=== PATIENT | male | born 1955 | race Caucasian/White ===

== ENCOUNTER 2017-11-14 16:05 | Inpatient (IN) | payer OTHER, SELFPAY ==
--- NOTE | 2017-11-14 16:05 | DT_ITS ---
This patient was seen during an EMR downtime November 12, 2017 - November 19, 2017. This patient may have a combination of paper and electronic documentation or all paper documentation. All documentation is viewable within the e-chart portion of [employer] for each patient visit.
[2017-11-17 13:32] LABS: ALB/GLOB Ratio 0.8 RATIO (0.9-2.4); AST(SGOT) 14 U/L (15-37); Alanine Aminotransfer ALT/SGPT 22 U/L (16-61); Albumin, Serum 3.3 g/dL (3.2-5.0); Alkaline Phosphatase 111 U/L (45-117); Anion Gap 9 (5-15); BUN 16 mg/dL (7-18); BUN/Creat Ratio 18.6 RATIO (10-20); Calcium,Total 8.9 mg/dL (8.5-10.1); Chloride 108 mmol/L (98-107); Creatinine, Serum 0.86 mg/dL (0.70-1.30); EST Glomerular Filtration Rate 96 mL/min (>60); Est Glom Filt Rate - Afr Amer 116 mL/min (>60); Globulin 4.4 g/dL (2.2-4.2); Glucose 92 mg/dL (74-106); Potassium 4.1 mmol/L (3.5-5.1); Protein, Total 7.7 g/dL (6.4-8.2); Sodium Level 142 mmol/L (136-145)
[2017-11-17 15:22] LABS: Prothrombin Time (Protime)PT. 13.4 SECONDS (11.7-14.9)
[2017-11-19] MEDS: Heparin Injection (Vial) 5,000 UNIT/ML VIAL 5000 UNIT SC ×3 (06:00→22:03)
[2017-11-19] MEDS: Lisinopril 10 MG Tablet PO (07:56)
[2017-11-19] MEDS: Docusate Sodium 100 MG Capsule PO ×2 (07:56→22:04)
[2017-11-19] MEDS: Carvedilol 12.5 MG Tablet PO ×2 (07:56→22:04)
[2017-11-19] MEDS: Aspirin 81 MG TAB.CHEW PO (07:56)
--- NOTE | 2017-11-19 11:00 | PN.NEURO_ITS ---
Subjective: Staffed in Team meeting. Family at bedside. Questions answered. With physical therapy, he is contact guard for transfers, to get in and out of bed. He is able to walk at 300 feet with out an assistive device, he does need verbal cues to remind him to look to his left in order to clear his environment on his left side. His strength has improved since admission. In the coming week will work on improving his gait, and his environmental awareness. With Occupational therapy, he is standby to set up assist for personal care. With Speech therapy, he has mild processing issues and sequencing difficulty. Will continue to work on his attention to the left in his environment. Nursing, no new issues. When discharged home will have family with him at all times. Will re-team on Sunday. - Physical Exam General: Alert, Oriented x3, Cooperative HEENT: Atraumatic, PERRLA, EOMI, Normocephalic Neck: Supple, No JVD, Negative Carotid Bruits Lungs: Clear to auscultation, Normal air movement Cardiovascular: Regular rate, No murmurs Abdomen: Bowel Sounds Present, Soft, Non Tender Extremities: No edema, Capillary Refill Less than 3 Seconds Skin: No rashes, No breakdown Musculoskeletal: No Tenderness to Palpation of Joints or Extremities Neurological: Cranial nerves II-XII grossly intact Psych/Mental Status: Normal Affect, Appropriate, Alert and oriented to time, place, person, mood and affect Active Medications Acetaminophen (Tylenol) 650 mg PO Q6H PRN PRN PRN Reason: PAIN Amlodipine Besylate (Norvasc) 10 mg PO QHS [facility] Aspirin (Aspirin, Baby) 81 mg PO DAILY@0800 [facility] Atorvastatin Calcium (Lipitor) 40 mg PO QHS [facility] Bisacodyl (Dulcolax) 10 mg RECTAL .PRN X 1 PRN PRN Reason: Constipation Carvedilol (Coreg) 12.5 mg PO BID [facility] Docusate Sodium (Colace) 100 mg PO BID [facility] Heparin Sodium (Porcine) (Heparin Na) 5,000 unit SC Q8 [facility] Lisinopril (Zestril) 10 mg PO DAILY [facility] Magnesium Hydroxide (Milk Of Magnesia) 30 ml PO .PRN X 1 PRN PRN Reason: Constipation Melatonin (Melatonin) 3 mg PO QHS [facility] Senna/Docusate Sodium (Senokot-S, Linsey-Colace) 2 tablet PO DAILY [facility] Assessment/Plan Debility status post Right thalamic hemorrhage 2/2 Coumadin for AFib. Goal of rehab is spiritism of prior level of functional independence. Plan: - Physical therapy for gait and balance - Occupational Therapy for ADLs - Speech therapy - As needed analgesics - Bowel protocol - Stroke prevention on ASA, Statin and Lovenox, will transition to Eliquis 02/13 , then will d/c the ASA, and Lovenox - DVT prophylaxis: SCDs, HEPARIN - Hypertension: Stable with good control, continue, home medication, Keep BP < 130/80 mmHg - Hx AFib - Coumadin on hold, may need to be evaluated for Watchmen device, will defer to his global upstream marketing manager at [facility], will continue the Heparin for now - Hx HLD - continue home dose of Statin - Follow up appointment with Neurosurgery on 12/10/17 -Follow up appointment with Computer Lab Aide on 12/14/17
--- NOTE | 2017-11-19 14:13 | CASEMGMT ---
Team meeting held. Patient present as well as patient family. No discharge date set at this time. Patient plans to continue with further care and treatment on the Inpatient Rehab Unit at this time. Patient plans to discharge home with family will be providing 24hr care for patient within the home. Support given. Will continue to follow. Alba REARDON, COAL YARD SUPERVISOR
[2017-11-19 18:37] LABS: Hematocrit 39.5 % (40-54); Hemoglobin 12.5 g/dl (13.0-16.5); Mean Corp Hgb Conc 31.6 g/gl (32-36); Mean Corpuscular Hgb 29.3 pg (27.0-32.0); Mean Corpuscular Volume 92.5 fL (80-94); RBC Distribution Width CV 15.4 % (11.6-14.6); RBC Distribution Width SD 49.7 fl (35.1-43.9); Red Blood Count 4.27 M/mm3 (4.6-6.2); White Blood Count 6.1 K/mm3 (4.4-11.0)
[2017-11-19 18:38] LABS: Mean Platelet Vol. 10.1 fl (6.2-12.0); Platelet Count 346 K/mm3 (150-450); Scan Indicated on CBC? Y/N NO
[2017-11-19 22:00] VITALS: BP 117/69; PULSE 73; RESP 18; TEMP 36.3; O2SAT 98
[2017-11-19] MEDS: amLODIPine 10 MG Tablet PO (22:02)
[2017-11-19] MEDS: Atorvastatin Calcium 40 MG Tablet PO (22:03)
[2017-11-19] MEDS: MELATONIN 3 MG TABLET PO (22:03)
[2017-11-20] MEDS: Heparin Injection (Vial) 5,000 UNIT/ML VIAL 5000 UNIT SC ×3 (05:47→21:10)
[2017-11-20 10:00] VITALS: BP 121/64; PULSE 67; RESP 16; TEMP 36.5; O2SAT 96
[2017-11-20] MEDS: Docusate Sodium 100 MG Capsule PO ×2 (10:02→21:11)
[2017-11-20] MEDS: Aspirin 81 MG TAB.CHEW PO (10:02)
[2017-11-20] MEDS: Carvedilol 12.5 MG Tablet PO ×2 (10:02→21:10)
[2017-11-20] MEDS: Lisinopril 10 MG Tablet PO (10:02)
--- NOTE | 2017-11-20 13:18 | PCM.PN.NEU ---
Subjective: Patient seen and examined. No acute events overnight. Tolerating therapy. Continues to have blurred vision, with left homonymous hemiopia. No issues with GI/. - Physical Exam General: Alert, Oriented x3, Cooperative HEENT: Atraumatic, PERRLA, EOMI, Normocephalic Neck: Supple, No JVD, Negative Carotid Bruits Lungs: Clear to auscultation, Normal air movement Cardiovascular: Regular rate, No murmurs Abdomen: Bowel Sounds Present, Soft, Non Tender Extremities: No edema, Capillary Refill Less than 3 Seconds Skin: No rashes, No breakdown Musculoskeletal: No Tenderness to Palpation of Joints or Extremities Neurological: Cranial nerves II-XII grossly intact, Neuro grossly intact, - - Left homonymous hemianopsia Psych/Mental Status: Normal Affect, Appropriate, Alert and oriented to time, place, person, mood and affect Vital Signs Temp Pulse Resp BP Pulse Ox 97.7 F L 67 16 121/64 H 96 11/20/17 10:00 11/20/17 10:11/20/17 10:00 11/20/17 10:11/20/17 10:00 Oxygen Delivery Method Room Air Weight: 75.3 kg Intake and Output for Last 24 Hours 11/18/17 11/19/17 11/20/17 23:59 23:59 23:59 Intake Total 120 / 120 Balance 120 / 120 Laboratory Tests Past 24 Hrs 11/16/17 Unknown WBC 6.1 RBC 4.27 L Hgb 12.5 L Hct 39.5 L MCV 92.5 MCH 29.3 MCHC 31.6 L RDW 15.4 H RDW Differential 49.7 H Plt Count 346 MPV 10.1 Active Medications Acetaminophen (Tylenol) 650 mg PO Q6H PRN PRN PRN Reason: PAIN Amlodipine Besylate (Norvasc) 10 mg PO QHS [facility] Last Admin: 11/20/17 12:57 Dose: Not Given Aspirin (Aspirin, Baby) 81 mg PO DAILY@0800 [facility] Last Admin: 11/20/17 12:56 Dose: Not Given Atorvastatin Calcium (Lipitor) 40 mg PO QHS [facility] Last Admin: 11/20/17 12:57 Dose: Not Given Bisacodyl (Dulcolax) 10 mg RECTAL .PRN X 1 PRN PRN Reason: Constipation Carvedilol (Coreg) 12.5 mg PO BID [facility] Last Admin: 11/20/17 12:57 Dose: Not Given Docusate Sodium (Colace) 100 mg PO BID [facility] Last Admin: 11/20/17 12:56 Dose: Not Given Heparin Sodium (Porcine) (Heparin Na) 5,000 unit SC Q8 [facility] Last Admin: 11/20/17 12:56 Dose: Not Given Lisinopril (Zestril) 10 mg PO DAILY [facility] Last Admin: 11/20/17 12:57 Dose: Not Given Magnesium Hydroxide (Milk Of Magnesia) 30 ml PO .PRN X 1 PRN PRN Reason: Constipation Melatonin (Melatonin) 3 mg PO QHS [facility] Last Admin: 11/20/17 12:57 Dose: Not Given Senna/Docusate Sodium (Senokot-S, Linsey-Colace) 2 tablet PO DAILY [facility] Last Admin: 11/20/17 12:57 Dose: Not Given Assessment/Plan Debility status post Right thalamic hemorrhage 2/2 Coumadin tx for AFib. Goal of rehab is uatsdin of prior level of functional independence. Plan: - Physical therapy for gait and balance - Occupational Therapy for ADLs - Speech therapy - As needed analgesics - Bowel protocol - Stroke prevention on ASA, Statin and Lovenox, will transition to Eliquis 02/13, then will d/c the ASA, and Lovenox - DVT prophylaxis: SCDs, HEPARIN - Hypertension: Stable with good control, continue, home medication, Keep BP < 130/80 mmHg - Hx AFib - Coumadin on hold, may need to be evaluated for Watchmen device, will defer to his hog feeder at [facility], will continue the Heparin for now - Hx HLD - continue home dose of Statin - Follow up appointment with Neurosurgery on 12/10/17 -Follow up appointment with Field Advisor on 12/14/17
--- NOTE | 2017-11-20 13:32 | PN.NEURO_ITS ---
Subjective: Patient seen and examined. No acute events overnight. Tolerating therapy. Continues to have blurred vision, with left homonymous hemiopia. No issues with GI/. - Physical Exam General: Alert, Oriented x3, Cooperative HEENT: Atraumatic, PERRLA, EOMI, Normocephalic Neck: Supple, No JVD, Negative Carotid Bruits Lungs: Clear to auscultation, Normal air movement Cardiovascular: Regular rate, No murmurs Abdomen: Bowel Sounds Present, Soft, Non Tender Extremities: No edema, Capillary Refill Less than 3 Seconds Skin: No rashes, No breakdown Musculoskeletal: No Tenderness to Palpation of Joints or Extremities Neurological: Cranial nerves II-XII grossly intact, Neuro grossly intact, - - Left homonymous hemianopsia Psych/Mental Status: Normal Affect, Appropriate, Alert and oriented to time, place, person, mood and affect Vital Signs Temp Pulse Resp BP Pulse Ox 97.7 F L 67 16 121/64 H 96 11/20/17 10:00 11/20/17 10:11/20/17 10:00 11/20/17 10:11/20/17 10:00 Oxygen Delivery Method Room Air Weight: 75.3 kg Intake and Output for Last 24 Hours 11/18/17 11/19/17 11/20/17 23:59 23:59 23:59 Intake Total 120 / 120 Balance 120 / 120 Laboratory Tests Past 24 Hrs 11/16/17 Unknown WBC 6.1 RBC 4.27 L Hgb 12.5 L Hct 39.5 L MCV 92.5 MCH 29.3 MCHC 31.6 L RDW 15.4 H RDW Differential 49.7 H Plt Count 346 MPV 10.1 Active Medications Acetaminophen (Tylenol) 650 mg PO Q6H PRN PRN PRN Reason: PAIN Amlodipine Besylate (Norvasc) 10 mg PO QHS [facility] Last Admin: 11/20/17 12:57 Dose: Not Given Aspirin (Aspirin, Baby) 81 mg PO DAILY@0800 [facility] Last Admin: 11/20/17 12:56 Dose: Not Given Atorvastatin Calcium (Lipitor) 40 mg PO QHS [facility] Last Admin: 11/20/17 12:57 Dose: Not Given Bisacodyl (Dulcolax) 10 mg RECTAL .PRN X 1 PRN PRN Reason: Constipation Carvedilol (Coreg) 12.5 mg PO BID [facility] Last Admin: 11/20/17 12:57 Dose: Not Given Docusate Sodium (Colace) 100 mg PO BID [facility] Last Admin: 11/20/17 12:56 Dose: Not Given Heparin Sodium (Porcine) (Heparin Na) 5,000 unit SC Q8 [facility] Last Admin: 11/20/17 12:56 Dose: Not Given Lisinopril (Zestril) 10 mg PO DAILY [facility] Last Admin: 11/20/17 12:57 Dose: Not Given Magnesium Hydroxide (Milk Of Magnesia) 30 ml PO .PRN X 1 PRN PRN Reason: Constipation Melatonin (Melatonin) 3 mg PO QHS [facility] Last Admin: 11/20/17 12:57 Dose: Not Given Senna/Docusate Sodium (Senokot-S, Linsey-Colace) 2 tablet PO DAILY [facility] Last Admin: 11/20/17 12:57 Dose: Not Given Assessment/Plan Debility status post Right thalamic hemorrhage 2/2 Coumadin tx for AFib. Goal of rehab is moravian of prior level of functional independence. Plan: - Physical therapy for gait and balance - Occupational Therapy for ADLs - Speech therapy - As needed analgesics - Bowel protocol - Stroke prevention on ASA, Statin and Lovenox, will transition to Eliquis 02/13 , then will d/c the ASA, and Lovenox - DVT prophylaxis: SCDs, HEPARIN - Hypertension: Stable with good control, continue, home medication, Keep BP < 130/80 mmHg - Hx AFib - Coumadin on hold, may need to be evaluated for Watchmen device, will defer to his development educator at [facility], will continue the Heparin for now - Hx HLD - continue home dose of Statin - Follow up appointment with Neurosurgery on 12/10/17 -Follow up appointment with Branch Manager Trainee on 12/14/17
[2017-11-20 17:45] VITALS: O2SAT 96
[2017-11-20 20:38] VITALS: BP 115/55; PULSE 69; RESP 16; TEMP 36.3; O2SAT 97
[2017-11-20] MEDS: amLODIPine 10 MG Tablet PO (21:09)
[2017-11-20] MEDS: MELATONIN 3 MG TABLET PO (21:09)
[2017-11-20] MEDS: Atorvastatin Calcium 40 MG Tablet PO (21:32)
[2017-11-21] MEDS: Heparin Injection (Vial) 5,000 UNIT/ML VIAL 5000 UNIT SC ×3 (05:50→21:17)
[2017-11-21 09:30] VITALS: BP 113/63; PULSE 76; RESP 16; TEMP 36.4; O2SAT 95
[2017-11-21] MEDS: Carvedilol 12.5 MG Tablet PO ×2 (10:06→21:16)
[2017-11-21] MEDS: Lisinopril 10 MG Tablet PO (10:06)
[2017-11-21] MEDS: Aspirin 81 MG TAB.CHEW PO (10:06)
[2017-11-21] MEDS: Docusate Sodium 100 MG Capsule PO ×2 (10:06→21:17)
--- NOTE | 2017-11-21 10:10 | PCM.PN.NEU ---
Subjective: Patient seen during Occupational therapy session. No new complaints. Denies any headaches, or double vision. Continue to have left homonymous hemiopia. Tolerating regular diet. No issues with GI/. - Physical Exam General: Alert, Oriented x3, Cooperative HEENT: Atraumatic, PERRLA, EOMI, Normocephalic Neck: Supple, No JVD, Negative Carotid Bruits Lungs: Clear to auscultation, Normal air movement Cardiovascular: Regular rate, No murmurs Abdomen: Bowel Sounds Present, Soft, Non Tender Extremities: No edema, Capillary Refill Less than 3 Seconds Skin: No rashes, No breakdown Musculoskeletal: No Tenderness to Palpation of Joints or Extremities Neurological: Cranial nerves II-XII grossly intact Psych/Mental Status: Normal Affect, Appropriate, Alert and oriented to time, place, person, mood and affect Vital Signs Temp Pulse Resp BP Pulse Ox 97.6 F L 76 16 113/63 95 11/21/17 09:30 11/21/17 09:30 11/21/17 09:30 11/21/17 09:30 11/21/17 09:30 Oxygen Delivery Method Room Air Weight: 75.9 kg Intake and Output for Last 24 Hours 11/19/17 11/20/17 11/21/17 23:59 23:59 23:59 Intake Total 120 / 120 440 / 440 260 / 260 Balance 120 / 120 440 / 440 260 / 260 Active Medications Acetaminophen (Tylenol) 650 mg PO Q6H PRN PRN PRN Reason: PAIN Amlodipine Besylate (Norvasc) 10 mg PO QHS [facility] Last Admin: 11/20/17 21:09 Dose: 10 mg Aspirin (Aspirin, Baby) 81 mg PO DAILY@0800 [facility] Last Admin: 11/21/17 10:06 Dose: 81 mg Atorvastatin Calcium (Lipitor) 40 mg PO QHS [facility] Last Admin: 11/20/17 21:32 Dose: 40 mg Bisacodyl (Dulcolax) 10 mg RECTAL .PRN X 1 PRN PRN Reason: Constipation Carvedilol (Coreg) 12.5 mg PO BID [facility] Last Admin: 11/21/17 10:06 Dose: 12.5 mg Docusate Sodium (Colace) 100 mg PO BID [facility] Last Admin: 11/21/17 10:06 Dose: 100 mg Heparin Sodium (Porcine) (Heparin Na) 5,000 unit SC Q8 [facility] Last Admin: 11/21/17 05:50 Dose: 5,000 u Lisinopril (Zestril) 10 mg PO DAILY [facility] Last Admin: 11/21/17 10:06 Dose: 10 mg Magnesium Hydroxide (Milk Of Magnesia) 30 ml PO .PRN X 1 PRN PRN Reason: Constipation Melatonin (Melatonin) 3 mg PO QHS [facility] Last Admin: 11/20/17 21:09 Dose: 3 mg Senna/Docusate Sodium (Senokot-S, Linsey-Colace) 2 tablet PO DAILY [facility] Last Admin: 11/20/17 14:14 Dose: Not Given Assessment/Plan Debility status post Right thalamic hemorrhage 2/2 Coumadin tx for AFib. Goal of rehab is mu-ism of prior level of functional independence. Plan: - Physical therapy for gait and balance - Occupational Therapy for ADLs - Speech therapy - As needed analgesics - Bowel protocol - Stroke prevention on ASA, Statin and Lovenox, will transition to [facility] 02/13, then will d/c the ASA, and Lovenox - DVT prophylaxis: SCDs, HEPARIN - Hypertension: Stable with good control, continue, home medication, Keep BP < 130/80 mmHg - Hx AFib - Coumadin on hold, may need to be evaluated for Watchmen device, will defer to his water resource engineering specialist at [facility], will continue the Heparin for now - Hx HLD - continue home dose of Statin - Follow up appointment with Neurosurgery on 12/10/17 - Follow up appointment with Rail Car Repairer on 12/14/17
--- NOTE | 2017-11-21 10:18 | PN.NEURO_ITS ---
Subjective: Patient seen during Occupational therapy session. No new complaints. Denies any headaches, or double vision. Continue to have left homonymous hemiopia. Tolerating regular diet. No issues with GI/. - Physical Exam General: Alert, Oriented x3, Cooperative HEENT: Atraumatic, PERRLA, EOMI, Normocephalic Neck: Supple, No JVD, Negative Carotid Bruits Lungs: Clear to auscultation, Normal air movement Cardiovascular: Regular rate, No murmurs Abdomen: Bowel Sounds Present, Soft, Non Tender Extremities: No edema, Capillary Refill Less than 3 Seconds Skin: No rashes, No breakdown Musculoskeletal: No Tenderness to Palpation of Joints or Extremities Neurological: Cranial nerves II-XII grossly intact Psych/Mental Status: Normal Affect, Appropriate, Alert and oriented to time, place, person, mood and affect Vital Signs Temp Pulse Resp BP Pulse Ox 97.6 F L 76 16 113/63 95 11/21/17 09:30 11/21/17 09:30 11/21/17 09:30 11/21/17 09:30 11/21/17 09:30 Oxygen Delivery Method Room Air Weight: 75.9 kg Intake and Output for Last 24 Hours 11/19/17 11/20/17 11/21/17 23:59 23:59 23:59 Intake Total 120 / 120 440 / 440 260 / 260 Balance 120 / 120 440 / 440 260 / 260 Active Medications Acetaminophen (Tylenol) 650 mg PO Q6H PRN PRN PRN Reason: PAIN Amlodipine Besylate (Norvasc) 10 mg PO QHS [facility] Last Admin: 11/20/17 21:09 Dose: 10 mg Aspirin (Aspirin, Baby) 81 mg PO DAILY@0800 [facility] Last Admin: 11/21/17 10:06 Dose: 81 mg Atorvastatin Calcium (Lipitor) 40 mg PO QHS [facility] Last Admin: 11/20/17 21:32 Dose: 40 mg Bisacodyl (Dulcolax) 10 mg RECTAL .PRN X 1 PRN PRN Reason: Constipation Carvedilol (Coreg) 12.5 mg PO BID [facility] Last Admin: 11/21/17 10:06 Dose: 12.5 mg Docusate Sodium (Colace) 100 mg PO BID [facility] Last Admin: 11/21/17 10:06 Dose: 100 mg Heparin Sodium (Porcine) (Heparin Na) 5,000 unit SC Q8 [facility] Last Admin: 11/21/17 05:50 Dose: 5,000 u Lisinopril (Zestril) 10 mg PO DAILY [facility] Last Admin: 11/21/17 10:06 Dose: 10 mg Magnesium Hydroxide (Milk Of Magnesia) 30 ml PO .PRN X 1 PRN PRN Reason: Constipation Melatonin (Melatonin) 3 mg PO QHS [facility] Last Admin: 11/20/17 21:09 Dose: 3 mg Senna/Docusate Sodium (Senokot-S, Linsey-Colace) 2 tablet PO DAILY [facility] Last Admin: 11/20/17 14:14 Dose: Not Given Assessment/Plan Debility status post Right thalamic hemorrhage 2/2 Coumadin tx for AFib. Goal of rehab is protestant of prior level of functional independence. Plan: - Physical therapy for gait and balance - Occupational Therapy for ADLs - Speech therapy - As needed analgesics - Bowel protocol - Stroke prevention on ASA, Statin and Lovenox, will transition to [facility] 02/13 , then will d/c the ASA, and Lovenox - DVT prophylaxis: SCDs, HEPARIN - Hypertension: Stable with good control, continue, home medication, Keep BP < 130/80 mmHg - Hx AFib - Coumadin on hold, may need to be evaluated for Watchmen device, will defer to his advanced manufacturing engineer at [facility], will continue the Heparin for now - Hx HLD - continue home dose of Statin - Follow up appointment with Neurosurgery on 12/10/17 - Follow up appointment with Dye Operator on 12/14/17
[2017-11-21 19:56] VITALS: BP 121/61; PULSE 74; RESP 16; TEMP 36.7; O2SAT 98
[2017-11-21] MEDS: MELATONIN 3 MG TABLET PO (21:16)
[2017-11-21] MEDS: Atorvastatin Calcium 40 MG Tablet PO (21:17)
[2017-11-21] MEDS: amLODIPine 10 MG Tablet PO (21:17)
[2017-11-22] MEDS: Heparin Injection (Vial) 5,000 UNIT/ML VIAL 5000 UNIT SC ×3 (05:42→20:13)
[2017-11-22 07:37] VITALS: BP 118/69; PULSE 67; RESP 18; TEMP 36.4; O2SAT 97
[2017-11-22] MEDS: Lisinopril 10 MG Tablet PO (08:00)
[2017-11-22] MEDS: Carvedilol 12.5 MG Tablet PO ×2 (08:01→20:13)
[2017-11-22] MEDS: Docusate Sodium 100 MG Capsule PO ×2 (08:01→20:13)
[2017-11-22] MEDS: Aspirin 81 MG TAB.CHEW PO (08:01)
--- NOTE | 2017-11-22 08:47 | PCM.PN.NEU ---
Subjective: Patient seen during Occupational therapy session. No acute events over night. Tolerating therapy and doing very well per the therapy staff. The patient and his family would like for him to be discharged home on Sunday if he is doing well and by all accounts he is doing very well. Will discharge him home with Outpatient Speech therapy and Occupational therapy. - Physical Exam General: Alert, Oriented x3, Cooperative HEENT: Atraumatic, PERRLA, EOMI, Normocephalic Neck: Supple, No JVD, Negative Carotid Bruits Lungs: Clear to auscultation, Normal air movement Cardiovascular: Regular rate, No murmurs Abdomen: Bowel Sounds Present, Soft, Non Tender Extremities: No edema, Capillary Refill Less than 3 Seconds Skin: No rashes, No breakdown Musculoskeletal: No Tenderness to Palpation of Joints or Extremities Neurological: Cranial nerves II-XII grossly intact Psych/Mental Status: Normal Affect, Appropriate, Alert and oriented to time, place, person, mood and affect Vital Signs Temp Pulse Resp BP Pulse Ox 97.5 F L 67 18 118/69 97 11/22/17 07:37 11/22/17 07:37 11/22/17 07:37 11/22/17 07:37 11/22/17 07:37 Oxygen Delivery Method Room Air Weight: 75.9 kg Intake and Output for Last 24 Hours 11/20/17 11/21/17 11/22/17 23:59 23:59 23:59 Intake Total 440 / 440 740 / 740 240 / 240 Balance 440 / 440 740 / 740 240 / 240 Active Medications Acetaminophen (Tylenol) 650 mg PO Q6H PRN PRN PRN Reason: PAIN Amlodipine Besylate (Norvasc) 10 mg PO QHS [facility] Last Admin: 11/21/17 21:17 Dose: 10 mg Aspirin (Aspirin, Baby) 81 mg PO DAILY@0800 [facility] Last Admin: 11/22/17 08:01 Dose: 81 mg Atorvastatin Calcium (Lipitor) 40 mg PO QHS [facility] Last Admin: 11/21/17 21:17 Dose: 40 mg Bisacodyl (Dulcolax) 10 mg RECTAL .PRN X 1 PRN PRN Reason: Constipation Carvedilol (Coreg) 12.5 mg PO BID [facility] Last Admin: 11/22/17 08:01 Dose: 12.5 mg Docusate Sodium (Colace) 100 mg PO BID [facility] Last Admin: 11/22/17 08:01 Dose: 100 mg Heparin Sodium (Porcine) (Heparin Na) 5,000 unit SC Q8 [facility] Last Admin: 11/22/17 05:42 Dose: 5,000 u Lisinopril (Zestril) 10 mg PO DAILY [facility] Last Admin: 11/22/17 08:00 Dose: 10 mg Magnesium Hydroxide (Milk Of Magnesia) 30 ml PO .PRN X 1 PRN PRN Reason: Constipation Melatonin (Melatonin) 3 mg PO QHS [facility] Last Admin: 11/21/17 21:16 Dose: 3 mg Assessment/Plan Debility status post Right thalamic hemorrhage 2/2 Coumadin tx for AFib. Goal of rehab is zoroastrianism of prior level of functional independence. Plan: - Physical therapy for gait and balance - Occupational Therapy for ADLs - Speech therapy - As needed analgesics - Bowel protocol - Stroke prevention on ASA, Statin and Lovenox, will transition to Eliquis 02/13, then will d/c the ASA, and Lovenox - DVT prophylaxis: SCDs, HEPARIN - Hypertension: Stable with good control, continue, home medication, Keep BP < 130/80 mmHg - Hx AFib - Coumadin on hold, may need to be evaluated for Watchmen device, will defer to his turner in at [facility], will continue the Heparin for now - Hx HLD - continue home dose of Statin - Follow up appointment with Neurosurgery on 12/10/17 - Follow up appointment with Flight Communications Operator on 12/14/17 - Discharge planned for Friday 11/24, with outpatient Occupational therapy and Speech therapy
--- NOTE | 2017-11-22 13:28 | CASEMGMT ---
Social Work Spoke with patient in room. Patient requesting for discharge date to set for 11/24/17, spoke with team, 11/24/17 is an agreeable discharge date at this time. Patient plans to discharge home with nephew and family to provide 24hr care, as is being recommended by staff. Speech and Occupational therapy are recommending for patient to have continued outpatient services at time of discharge. Patient is agreeable to recommendation and requesting for outpatient services to be set up through [facility]. Patient aware that an order will be faxed to [facility] and then [facility] will contact patient to set up appointment. Patient confirming that [facility] is to contact patient brotherEpi to set up appointment. Patient family plans to provide transportation home for patient at time of discharge. Patient reporting no further needs and is currently voicing no durable medical equipment needs. Patient brother Epi aware of discharge date and plan and is agreeable to all. Support given. Order for Occupational and Speech therapy faxed to [facility]. Proposed discharge date: 11/24/17 PLAN: Discharge home with family and outpatient therapy services. Alba REARDON, BURNT LIME DRAWER
--- NOTE | 2017-11-22 17:21 | PCM.PN.HOSP ---
Subjective: Patient was seen and examined. No new complaints. Been discharged on Sunday. Denies any chest pain dizziness or palpitations Vitals/I&O's: Vital Signs Temp Pulse Resp BP Pulse Ox 97.5 F L 67 18 118/69 97 11/22/17 07:37 11/22/17 07:37 11/22/17 07:37 11/22/17 07:37 11/22/17 07:37 Oxygen Delivery Method Room Air Weight: 75.9 kg Intake and Output for Last 24 Hours 11/20/17 11/21/17 11/22/17 23:59 23:59 23:59 Intake Total 440 / 440 740 / 740 600 / 600 Balance 440 / 440 740 / 740 600 / 600 General: Alert, Oriented x3, Cooperative HEENT: Atraumatic, PERRLA, EOMI, Normocephalic Oral: Moist Mucosa Neck: Supple Lungs: Clear to auscultation, Normal air movement Cardiovascular: Regular rate, Regular Rhythm, Normal S1, Normal S2, No murmurs Abdomen: Bowel Sounds Present, Soft, Non Tender, Non-Distended, No Hepato-splenomegaly Extremities: No edema Skin: No rashes Musculoskeletal: No Tenderness to Palpation of Joints or Extremities Neurological: Cranial nerves II-XII grossly intact, Motor Exam 5/5 strength throughout Psych/Mental Status: Normal Affect, Appropriate Current Medications Acetaminophen (Tylenol) 650 mg PO Q6H PRN PRN PRN Reason: PAIN Amlodipine Besylate (Norvasc) 10 mg PO QHS [facility] Last Admin: 11/21/17 21:17 Dose: 10 mg Aspirin (Aspirin, Baby) 81 mg PO DAILY@0800 [facility] Last Admin: 11/22/17 08:01 Dose: 81 mg Atorvastatin Calcium (Lipitor) 40 mg PO QHS [facility] Last Admin: 11/21/17 21:17 Dose: 40 mg Bisacodyl (Dulcolax) 10 mg RECTAL .PRN X 1 PRN PRN Reason: Constipation Carvedilol (Coreg) 12.5 mg PO BID [facility] Last Admin: 11/22/17 08:01 Dose: 12.5 mg Docusate Sodium (Colace) 100 mg PO BID [facility] Last Admin: 11/22/17 08:01 Dose: 100 mg Heparin Sodium (Porcine) (Heparin Na) 5,000 unit SC Q8 [facility] Last Admin: 11/22/17 15:12 Dose: 5,000 u Lisinopril (Zestril) 10 mg PO DAILY [facility] Last Admin: 11/22/17 08:00 Dose: 10 mg Magnesium Hydroxide (Milk Of Magnesia) 30 ml PO .PRN X 1 PRN PRN Reason: Constipation Melatonin (Melatonin) 3 mg PO QHS [facility] Last Admin: 11/21/17 21:16 Dose: 3 mg Assessment/Plan 1 Debility secondary to right thalamic CVA, improved, continue with therapy 2. Hypertension, controlled, continue with home medications 3. History of paroxysmal atrial fibrillation, Coumadin on hold, 4. Hyperlipidemia, on statin 5. DVT prophylaxis with heparin subcu Code Visit Inpatient E&M: 96994 Subs Hosp L2
[2017-11-22 19:53] VITALS: BP 127/63; PULSE 80; RESP 16; TEMP 36.6; O2SAT 96
[2017-11-22] MEDS: amLODIPine 10 MG Tablet PO (20:12)
[2017-11-22] MEDS: Atorvastatin Calcium 40 MG Tablet PO (20:12)
[2017-11-22] MEDS: MELATONIN 3 MG TABLET PO (20:12)
[2017-11-23] MEDS: Heparin Injection (Vial) 5,000 UNIT/ML VIAL 5000 UNIT SC ×3 (06:00→20:51)
[2017-11-23 08:01] VITALS: BP 124/67; PULSE 77; RESP 16; TEMP 36.4; O2SAT 97
[2017-11-23] MEDS: Lisinopril 10 MG Tablet PO (08:04)
[2017-11-23] MEDS: Docusate Sodium 100 MG Capsule PO ×2 (08:04→20:51)
[2017-11-23] MEDS: Carvedilol 12.5 MG Tablet PO ×2 (08:04→20:51)
[2017-11-23] MEDS: Aspirin 81 MG TAB.CHEW PO (08:04)
--- NOTE | 2017-11-23 14:26 | PCM.DC ---
You will use the following diet at home:: Cardiac Your food should be the consistency of: Regular Your liquids should be the consistency of: Regular/Thin Discharge Activity: May Not Drive - Until cleared by Neurologist, May Shower, May Take a Tub Bath, Use Walker, - - Cane Weight Bearing Status: Full weight bearing Call your doctor if you observe: Fever of 101 or Higher, Coldness, Increased Pain, Numbness or Tingling, Change in Color, Inability to urinate, Inability to have a bowel movement, Using more than one pad per hour, Shortness of breath, Dizziness, Fainting spells, Swelling in the ankles, Chest pain, Prolonged hiccoughing, Increased palpitations (irregular heartbeat), Calf discomfort, Uncontrolled pain Allergies/Adverse Reactions: Allergies morphine Allergy (Verified 11/15/17 08:50) Unknown Opioids - Morphine Analogues Allergy (Verified 11/15/17 08:50) Unknown Medications to take at Discharge Acetaminophen [Tylenol] 650 mg PO Q4H PRN PRN 11/20/17 Aspirin [Aspirin, Baby] 81 mg PO DAILY@0800 11/20/17 Melatonin 3 mg PO QHS 11/20/17 Amlodipine [Norvasc] 10 mg PO QHS #90 tab 11/23/17 Atorvastatin Calcium [Lipitor] 40 mg PO QHS #90 tab 11/23/17 Carvedilol [Coreg] 12.5 mg PO BID #180 tab 11/23/17 Lisinopril [Zestril] 10 mg PO DAILY #90 tab 11/23/17 Metoprolol Tartrate 25 mg PO BID #180 tab 11/23/17 The following prescriptions were given: Amlodipine [Norvasc] 10 mg PO QHS #90 tab Atorvastatin Calcium [Lipitor] 40 mg PO QHS #90 tab Lisinopril [Zestril] 10 mg PO DAILY #90 tab Carvedilol [Coreg] 12.5 mg PO BID #180 tab Metoprolol Tartrate 25 mg PO BID #180 tab Primary Care Physician: Samir Rai MD [Primary Care Provider] - Please Follow Up With: Samir Rai MD Please Follow Up With: Hilary Jones NP-C Please Follow Up With: [facility] - Occupational and Speech therapy Proposed Discharge Date: 11/24/17
--- NOTE | 2017-11-23 14:29 | PCM.RU.DC ---
Rehab Discharge Summary DATE OF ADMISSION: 11/14/17 DATE OF DISCHARGE: 11/24/17 - Rehab Diagnosis Right ICH Discharge Diet: 2000 mg Sodium Diet Discharge Activity: May Not Drive - Until cleared by Neurologist, May Shower, May Take a Tub Bath, Use Walker, - - Cane Weight Bearing Status: Full weight bearing Call your doctor if you observe: Fever of 101 or Higher, Coldness, Increased Pain, Numbness or Tingling, Change in Color, Inability to urinate, Inability to have a bowel movement, Using more than one pad per hour, Shortness of breath, Dizziness, Fainting spells, Swelling in the ankles, Chest pain, Prolonged hiccoughing, Increased palpitations (irregular heartbeat), Calf discomfort, Uncontrolled pain Home Medications: Medications to take at Discharge Acetaminophen [Tylenol] 650 mg PO Q4H PRN PRN 11/20/17 Aspirin [Aspirin, Baby] 81 mg PO DAILY@0800 11/20/17 Melatonin 3 mg PO QHS 11/20/17 Amlodipine [Norvasc] 10 mg PO QHS #90 tab 11/23/17 Atorvastatin Calcium [Lipitor] 40 mg PO QHS #90 tab 11/23/17 Carvedilol [Coreg] 12.5 mg PO BID #180 tab 11/23/17 Lisinopril [Zestril] 10 mg PO DAILY #90 tab 11/23/17 Metoprolol Tartrate 25 mg PO BID #180 tab 11/23/17 Following Prescrptions Were Given to Patient: Amlodipine [Norvasc] 10 mg PO QHS #90 tab Atorvastatin Calcium [Lipitor] 40 mg PO QHS #90 tab Lisinopril [Zestril] 10 mg PO DAILY #90 tab Carvedilol [Coreg] 12.5 mg PO BID #180 tab Metoprolol Tartrate 25 mg PO BID #180 tab Primary Care Physician: Samir Rai MD [Primary Care Provider] - Please Follow Up With: Samir Rai MD Please Follow Up With: Hilary Jones NP-C Please Follow Up With: [facility] Occupational therapy and Speech therapy Disposition: Home - with Outpatient Physical therapy and Occupational therapy Minutes spent on discharge:: 40 Patient Condition:: Good Rehab Course The patient is a 62 year old right handed male, who is admitted to the rehab unit for rehabilitation after 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 He has a PMH of a stroke in 07/17/17, migraines, HTN, a stent was placed on 07/31/17, AFib was previously on Coumadin which was placed on hold by the school bus attendant at [facility], a ascending Aortic dissection, aneurysm in 07/2017 and HLD. Per documentation he was admitted to OSH on 11/08 with LUE weakness, R gaze preference, LUE drift, L sided sensory loss, ataxia, and LVF cut. A CTH showed a 3cm ICH in the right thalamus with no IVH. He was hypertensive on arrival with a BP of 209/93, he was given hydralazine his BP went to 141/85. He was on Coumadin his INR was 2.5, he was given vitamin K. K centra was not available he was transferred to [facility] NICU for management. He lives in a two story home with his mother and has 3 steps to get into the house. His LUE drift has improved, along with his ataxia and left sided sensory loss, he is back at base line. he continues to have blurry vision on the left with vision deficits noted. With physical therapy, he is contact guard for transfers, to get in and out of bed. He is able to walk at 300 feet with out an assistive device, he does need verbal cues to remind him to look to his left in order to clear his environment on his left side. His strength has improved since admission. In the coming week will work on improving his gait, and his environmental awareness. With Occupational therapy, he is standby to set up assist for personal care. With Speech therapy, he has mild processing issues and sequencing difficulty. Will continue to work on his attention to the left in his environment. Nursing, no new issues. When discharged home will have family with him at all times. He will still require Occupational therapy and speech therapy on discharge. He will need to follow up with his PCP, [employer] Counterperson to see when he may restart his coumadin or some other anticoagulation medication, and he will need to follow up with Neurology. Meaningful Use Info Meaningful Use Diagnoses (Choose all that apply): None applicable - Had ICH in the right thalamus - CVA Therapy Assessed for PT,OT and/or ST?: Yes - Ischemic Stroke Dx of Atrial fib/flutter?: Yes Anticoagulant at discharge?: No Reason anticoagulant not ordered: Medical Contraindication Statins at discharge?: Yes
--- NOTE | 2017-11-23 14:37 | DS.PCM_ITS ---
Rehab Discharge Summary DATE OF ADMISSION: 11/14/17 DATE OF DISCHARGE: 11/24/17 - Rehab Diagnosis Right ICH Discharge Diet: 2000 mg Sodium Diet Discharge Activity: May Not Drive - Until cleared by Neurologist, May Shower, May Take a Tub Bath, Use Walker, - - Cane Weight Bearing Status: Full weight bearing Call your doctor if you observe: Fever of 101 or Higher, Coldness, Increased Pain, Numbness or Tingling, Change in Color, Inability to urinate, Inability to have a bowel movement, Using more than one pad per hour, Shortness of breath, Dizziness, Fainting spells, Swelling in the ankles, Chest pain, Prolonged hiccoughing, Increased palpitations (irregular heartbeat), Calf discomfort, Uncontrolled pain Home Medications: Medications to take at Discharge Acetaminophen [Tylenol] 650 mg PO Q4H PRN PRN 11/20/17 Aspirin [Aspirin, Baby] 81 mg PO DAILY@0800 11/20/17 Melatonin 3 mg PO QHS 11/20/17 Amlodipine [Norvasc] 10 mg PO QHS #90 tab 11/23/17 Atorvastatin Calcium [Lipitor] 40 mg PO QHS #90 tab 11/23/17 Carvedilol [Coreg] 12.5 mg PO BID #180 tab 11/23/17 Lisinopril [Zestril] 10 mg PO DAILY #90 tab 11/23/17 Metoprolol Tartrate 25 mg PO BID #180 tab 11/23/17 Following Prescrptions Were Given to Patient: Amlodipine [Norvasc] 10 mg PO QHS #90 tab Atorvastatin Calcium [Lipitor] 40 mg PO QHS #90 tab Lisinopril [Zestril] 10 mg PO DAILY #90 tab Carvedilol [Coreg] 12.5 mg PO BID #180 tab Metoprolol Tartrate 25 mg PO BID #180 tab Primary Care Physician: Samir Rai MD [Primary Care Provider] - Please Follow Up With: Samir Rai MD Please Follow Up With: Hilary Jones NP-C Please Follow Up With: [facility] Occupational therapy and Speech therapy Disposition: Home - with Outpatient Physical therapy and Occupational therapy Minutes spent on discharge:: 40 Patient Condition:: Good Rehab Course The patient is a 62 year old right handed male, who is admitted to the rehab unit for rehabilitation after 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 He has a PMH of a stroke in 07/17/17, migraines, HTN, a stent was placed on 07/31/17, AFib was previously on Coumadin which was placed on hold by the punch operator at [facility], a ascending Aortic dissection, aneurysm in 07/2017 and HLD. Per documentation he was admitted to OSH on 11/08 with LUE weakness, R gaze preference, LUE drift, L sided sensory loss, ataxia, and LVF cut. A CTH showed a 3cm ICH in the right thalamus with no IVH. He was hypertensive on arrival with a BP of 209/93, he was given hydralazine his BP went to 141/85. He was on Coumadin his INR was 2.5, he was given vitamin K. K centra was not available he was transferred to [facility] NICU for management. He lives in a two story home with his mother and has 3 steps to get into the house. His LUE drift has improved, along with his ataxia and left sided sensory loss, he is back at base line. he continues to have blurry vision on the left with vision deficits noted. With physical therapy, he is contact guard for transfers, to get in and out of bed. He is able to walk at 300 feet with out an assistive device, he does need verbal cues to remind him to look to his left in order to clear his environment on his left side. His strength has improved since admission. In the coming week will work on improving his gait, and his environmental awareness. With Occupational therapy, he is standby to set up assist for personal care. With Speech therapy, he has mild processing issues and sequencing difficulty. Will continue to work on his attention to the left in his environment. Nursing, no new issues. When discharged home will have family with him at all times. He will still require Occupational therapy and speech therapy on discharge. He will need to follow up with his PCP, Ore Trimmer to see when he may restart his coumadin or some other anticoagulation medication, and he will need to follow up with Neurology. Meaningful Use Info Meaningful Use Diagnoses (Choose all that apply): None applicable - Had ICH in the right thalamus - CVA Therapy Assessed for PT,OT and/or ST?: Yes - Ischemic Stroke Dx of Atrial fib/flutter?: Yes Anticoagulant at discharge?: No Reason anticoagulant not ordered: Medical Contraindication Statins at discharge?: Yes
[2017-11-23 20:40] VITALS: BP 125/59; PULSE 80; RESP 14; TEMP 36.4; O2SAT 96
[2017-11-23] MEDS: MELATONIN 3 MG TABLET PO (20:51)
[2017-11-23] MEDS: amLODIPine 10 MG Tablet PO (20:51)
[2017-11-23] MEDS: Atorvastatin Calcium 40 MG Tablet PO (20:51)
--- NOTE | 2017-11-24 05:47 | NURSING ---
Reviewed and agree with LPNs fims and handoff
[2017-11-24] MEDS: Heparin Injection (Vial) 5,000 UNIT/ML VIAL 5000 UNIT SC (06:37)
--- NOTE | 2017-11-24 09:06 | PN_ITS ---
Subjective: Patient was seen and examined. Denies any new complaints. Been discharged home today. Denies chest pain, dizziness, palpitation, fever, chills Objective: Physical exam: General: Alert, Oriented x3, Cooperative HEENT: Atraumatic, PERRLA, EOMI, Normocephalic Oral: Moist Mucosa Neck: Supple Lungs: Clear to auscultation, Normal air movement Cardiovascular: Regular rate, Regular Rhythm, Normal S1, Normal S2, No murmurs Abdomen: Bowel Sounds Present, Soft, Non Tender, Non-Distended, No Hepato- splenomegaly Extremities: No edema Skin: No rashes Musculoskeletal: No Tenderness to Palpation of Joints or Extremities Neurological: Cranial nerves II-XII grossly intact, Motor Exam 5/5 strength throughout Psych/Mental Status: Normal Affect, Appropriate Vitals/I&O's: Vital Signs Temp Pulse Resp BP Pulse Ox 97.6 F L 80 14 125/59 H 96 11/23/17 20:40 11/23/17 20:40 11/23/17 20:40 11/23/17 20:40 11/23/17 20:40 Oxygen Delivery Method Room Air Weight: 75.9 kg Intake and Output for Last 24 Hours 11/22/17 11/23/17 11/24/17 23:59 23:59 23:59 Intake Total 960 / 960 980 / 980 Balance 960 / 960 980 / 980 Current Medications Acetaminophen (Tylenol) 650 mg PO Q6H PRN PRN PRN Reason: PAIN Amlodipine Besylate (Norvasc) 10 mg PO QHS [facility] Last Admin: 11/23/17 20:51 Dose: 10 mg Aspirin (Aspirin, Baby) 81 mg PO DAILY@0800 [facility] Last Admin: 11/23/17 08:04 Dose: 81 mg Atorvastatin Calcium (Lipitor) 40 mg PO QHS [facility] Last Admin: 11/23/17 20:51 Dose: 40 mg Bisacodyl (Dulcolax) 10 mg RECTAL .PRN X 1 PRN PRN Reason: Constipation Carvedilol (Coreg) 12.5 mg PO BID [facility] Last Admin: 11/23/17 20:51 Dose: 12.5 mg Docusate Sodium (Colace) 100 mg PO BID [facility] Last Admin: 11/23/17 20:51 Dose: 100 mg Heparin Sodium (Porcine) (Heparin Na) 5,000 unit SC Q8 [facility] Last Admin: 11/24/17 06:37 Dose: 5,000 u Lisinopril (Zestril) 10 mg PO DAILY [facility] Last Admin: 11/23/17 08:04 Dose: 10 mg Magnesium Hydroxide (Milk Of Magnesia) 30 ml PO .PRN X 1 PRN PRN Reason: Constipation Melatonin (Melatonin) 3 mg PO QHS [facility] Last Admin: 11/23/17 20:51 Dose: 3 mg Assessment/Plan 1 Debility secondary to right thalamic CVA, improved, continue with therapy 2. Hypertension, controlled, continue with home medications 3. History of paroxysmal atrial fibrillation, Coumadin on hold, 4. Hyperlipidemia, on statin 5. DVT prophylaxis with heparin subcu Code Visit Inpatient E&M: 47350 Subs Hosp L2
[2017-11-24] MEDS: Aspirin 81 MG TAB.CHEW PO (09:11)
[2017-11-24] MEDS: Lisinopril 10 MG Tablet PO (09:11)
[2017-11-24] MEDS: Docusate Sodium 100 MG Capsule PO (09:11)
[2017-11-24] MEDS: Carvedilol 12.5 MG Tablet PO (09:11)
[2017-11-24 09:16] VITALS: BP 123/72; PULSE 81; RESP 18; TEMP 36.6; O2SAT 98
[2017-11-24 10:56] VITALS: BP 123/72; PULSE 81; RESP 18; TEMP 36.6; O2SAT 94
--- NOTE | 2017-11-24 10:58 | NURSING ---
Went over DC instructions, medications and appts. with pt's brother and pt both verbalized understanding, this RN answered all questions. pt taken to POV by wheelchair, had all personal belongings in hand.
--- NOTE | 2017-11-26 15:21 | CASEMGMT ---
Insurance Notified insurance of patient discharge on 11/24/17 to home with family and outpatient therapy services. Auth#[id number] Alba REARDON, INSTRUCTIONAL SYSTEMS SPECIALIST
== END 2017-11-24 11:22 | disposition home or self-care (01) | DRG 57 ==
PROVIDERS: Admitting Provider Psychiatry & Neurology Neurology; Family Provider Family Medicine; PCP Family Medicine; Visit Provider Internal Medicine
DX: I69.254 Hemiplegia and hemiparesis following other nontraumatic intracranial hemorrhage affecting left non-dominant side (principal); I69.298 Other sequelae of other nontraumatic intracranial hemorrhage; I69.293 Ataxia following other nontraumatic intracranial hemorrhage; H53.8 Other visual disturbances; R20.8 Other disturbances of skin sensation; I10 Essential (primary) hypertension; I48.0 Paroxysmal atrial fibrillation; E78.5 Hyperlipidemia, unspecified; G43.909 Migraine, unspecified, not intractable, without status migrainosus; Z87.891 Personal history of nicotine dependence
CPT/HCPCS: 36415; 80053; 85027; 85610; 92507; 92523; 92610; 97110; 97112; 97116; 97162; 97165; 97530; 97535

== ENCOUNTER 2017-12-04 13:00 | Outpatient (RCR) | payer OTHER, SELFPAY ==
--- NOTE | 2017-11-27 16:43 | HP.OTEVAL_ITS ---
Patient's Visit Information HIRAL SMITH Jr. is a 62 year old M, referred to Occupational Therapy by Marcelino Nelson MD, with a diagnosis of nontraumatic intracerebral hemmorrhage. Date of Evaluation: 11/27/17 Occupational Therapist: Melisa Simmons - Subjective Subjective: Pt seen for initial occupational therapy evaluation after having nontraumatic intracerebral hemmorrhage 11/08/17. Pt had aortic disection 07/17/17. He was at [facility] for 1 wk and then went to rehab floor [facility] for 1 wk. Pt lives with mother, but she lives in [place] half the year, so pt alone half the year. Mother able to assist with tasks if needed when home. 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 2 story house with 1st floor setup, 3 steps to enter w / bilateral handrails. Tub/shower, HHS, grab bars, shower chair available but doesn't need it. Comfort height commode. Indep w/ simple meal prep and zero turn mowing his yard at this time. Not driving or working at this time secondary to intracerebral hemorrhage. R handed. Typically wears glasses. Pt demonstrates L visual neglect and decreased L peripheral vision. - Objective Objective/Observation: decreased L vision field with decreased L peripheral vision - ROM ROM Comments: BUE WFL - Strength Marine Electronics Repairer: R 80#, L 60# Lateral Pinch: R 12#, L 12# Tripod Pinch: R 10#, L 8# Strength Comments: MMT Generalized BUE strength 4/5. R hand dominent - Edema Other: No edema noted - Sensation Sensation Comments: Pt states no numbness or tingling. - Visual/Perceptual Skills Visual Field Cut: Yes - L side Left Neglect: Yes Comments: Pt states vision slowly getting better - Nine Hole Peg Right: 27.08 Left: 30.38 Comments: R hand dominent - In-Hand Manipulation Finger to Palm Translation: Normal - Right, Normal - Left Palm to Finger Translation: Normal - Right, Normal - Left - Stroke Specific Quality of Life Total SS-QOL Score: 192 - Goals Goal:: Pt will increase L hand design engineer marine equipment strength by 15# to increase functional strength to assist w/ work tasks by d/c from OT Goal:: Pt will be educated on adaptive techniques and exercises to assist with visual perceptual skills, visual neglect L side and decreased L peripheral visual field with good understanding and demo 100%x. Goal:: Pt will be able to read directions and follow a map around facility to get to a specific destination w/o verbal or visual cues needed for looking to his L side and doing a good job of turning his head to look around at his surrounding in 3/4 trials. Goal:: Pt will be educated on L hand design engineer marine equipment strengthening exercises HEP to complete at home with good understanding and demo 100%x. - Rehabilitation General Assessment: Pt demonstrates L decreased design engineer marine equipment strength and decreased L visual field w/ decreased L peripheral visual field indicating a need for occupational therapy services to educate on adaptive techniques to assist with L visual field cut, decreased L peripheral vision and educate on HEP for L design engineer marine equipment strength exercises to increase pts quality of life and be able to return back to work. Rehabilitation Potential: Good - Anticipated Interventions Anticipated Interventions: Strengthening, Joint Protection/Energy Conservation, Ergonomic Education, Neuro Reeducation, Visual/Perceptual Skills, ADL Training, Home Program - Visit Plan Frequency: 1-2x /Week Duration: 4 Weeks General Plan: educate on adaptive techniques to assist with L visual field cut, decreased L peripheral vision and educate on HEP for L design engineer marine equipment strength exercises to increase pts quality of life and be able to return back to work. TEXT: Thank you for the opportunity to evaluate your patient. For Medicare and Medicare HMO plans, please review the plan of care and approve it. It will need to be FAXED BACK to us at [phone] for Medicare purposes. Please let me know if there are questions or concerns regarding this plan of care. Physician Signature: Date:
--- NOTE | 2017-12-05 09:06 | HP.OTDCSUM_ITS ---
HP - OT D/C Summary It has been my pleasure to treat HIRAL SMITH Jr. under orders from Marcelino Nelson MD, for the diagnosis of nontraumatic intracerebral hemmorrhage for a total of 2 visit(s). Please see the following information for a summary of their discharge status. - Objective Objective/Function: educate on adaptive techniques and compensatory strategies to assist with decreased L peripheral vision. 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 Goal:: Pt will be able to read directions and follow a map around facility to get to a specific destination w/o verbal or visual cues needed for looking to his L side and doing a good job of turning his head to look around at his surrounding in 3/4 trials. Goal:: Pt will be educated on L hand tuft machine operator strengthening exercises HEP to complete at home with good understanding and demo 100%x. - Plan Plan: d/c OT services - D/C Information Discharge Comments: Pt has completed visual motor and visual perceptual activities. Pt completed 4/4 different visual motor/perceptual worksheets 100% accuracy. Pt able to read paragraph back to therapist without difficulty. Pt able to read directions and make his way around facility to get to the correct spot turning his head to look all around his surrounding while walking to his destination following the directions 100% accuracy. Pt completed visual scanning activity having to find orange markers around room scanning and turning his head to left when needed with 100% accuracy. Pt educated to make appointment with eye Educated on different puzzles and reading tasks to work his eyes and how to scan his environment secondary to decreased peripheral vision. Pt completing all BADLs/IADLs independently at home and planning to go home to use chain Advebs today. Pt states does not notice any difference with L hand strength vs R hand strength when completing functional tasks. Pt has been educated on adaptive techniques or compensatory strategies to assist with decreased peripheral vision. Pt no longer requires OT services at this time. D/ C OT services. If there are questions or concerns regarding this patient's occupational therapy , please fell free to call me at [phone]. Thank you for the referral of this patient. Sincerely, Melisa Simmons
== END 2017-12-04 19:00 | disposition home or self-care (01) ==
LOC: OT 13:00
PROVIDERS: Family Provider Family Medicine; PCP Family Medicine; Visit Provider Psychiatry & Neurology Neurology
DX: I61.9 Nontraumatic intracerebral hemorrhage, unspecified (principal); I69.928 Other speech and language deficits following unspecified cerebrovascular disease
CPT/HCPCS: 97112; 97165; 97166

== ENCOUNTER → 2017-12-24 13:02 | Outpatient (CLI) | payer OTHER, SELFPAY ==
--- NOTE | 2017-12-24 13:05 | EKG12_ITS ---
Test Reason : AFIB Blood Pressure : / mmHG Vent. Rate : 059 BPM Atrial Rate : 059 BPM P-R Int : 168 ms QRS Dur : 092 ms QT Int : 434 ms P-R-T Axes : 083 079 082 degrees QTc Int : 429 ms Sinus bradycardia Otherwise normal ECG Confirmed by DONAL HUNTER, LUZMARIA ([id number]), script editor DIANN MEEHAN ([id number]) on 12/25/2017 2:57:50 PM Referred By: OUT DOCTOR Confirmed By:LUZMARIA MANSFIELD MD
== END ==
LOC: RAD 13:03 → CVS 13:03
PROVIDERS: Family Provider Family Medicine; PCP Family Medicine
DX: I48.91 Unspecified atrial fibrillation (principal); Z95.2 Presence of prosthetic heart valve; Z95.828 Presence of other vascular implants and grafts
CPT/HCPCS: 93005